=== PATIENT | female | born 1970 | race Caucasian/White ===

== ENCOUNTER 2017-12-12 16:45 | Observation (INO) | payer BC ==
[2017-12-12 19:52] LABS: BASOPHILS # (AUTO) 0.1 X10^3/uL (0.0-0.1); BASOPHILS % (AUTO) 0.5 % (0.2-1.0); EOSINOPHILS # (AUTO) 0.2 x10^3/uL (0.0-0.2); EOSINOPHILS % (AUTO) 1.7 % (0.9-2.9); HEMOGLOBIN 13.4 g/dL (12.0-16.0); LYMPHOCYTES # (AUTO) 3.8 X10^3/uL (1.3-2.9); LYMPHOCYTES % (AUTO) 37.8 % (21.0-51.0); MEAN CORPUSCULAR HEMOGLOBIN 31.1 pg (27.0-34.0); MEAN CORPUSCULAR HGB CONC 35.2 g/dL (33.0-35.0); MEAN CORPUSCULAR VOLUME 88.4 fL (80.0-100.0); MEAN PLATELET VOLUME 9.3 fL (7.4-11.0); MONOCYTES # (AUTO) 0.5 x10^3/uL (0.3-0.8); MONOCYTES % (AUTO) 5.4 % (0.0-13.0); NEUTROPHILS # (AUTO) 5.5 x10^3/uL (2.2-4.8); NEUTROPHILS % (AUTO) 54.6 % (42.0-75.0); PLATELET COUNT 214 X10^3/uL (150.0-450.0); RED CELL DISTRIBUTION WIDTH 13.9 % (11.6-16.5)
[2017-12-12 20:01] LABS: ALANINE AMINOTRANSFERASE 63 Units/L (12-78); ALKALINE PHOSPHATASE 115 Units/L (46-116); BLOOD UREA NITROGEN 14 mg/dL (7-18); CALCIUM 8.5 mg/dL (8.5-10.1); CARBON DIOXIDE 24.5 mmol/L (21-32); CHLORIDE 106 mmol/L (98-107); COR CA(FOR HYPOALB) 9.3 mg/dL (8.5-10.1); COR NA(FOR HYPERGLY) 142 mmol/L (136-145); CREATININE 0.98 mg/dL (0.55-1.02); SODIUM 140 mmol/L (136-145); TOTAL PROTEIN 6.6 g/dL (6.4-8.2); eGFR BLACK RACES > 60 (>60); eGFR NON BLACK RACES > 60 (>60)
[2017-12-12 20:09] LABS: CKMB % 1.9 % (<4); CREATINE KINASE 93 Units/L (26-192); CREATINE KINASE MB 1.8 ng/mL (0-4.0); MAGNESIUM 1.6 mg/dL (1.7-2.9); TROPONIN I < 0.02 ng/mL (0-1.5)
[2017-12-12 20:58] LABS: ASPARTATE AMINO TRANSFERASE 46 Units/L (15-37)
[2017-12-12] MEDS ORDERED: LOVENOX INJ 40 MG SYR SC SCH (21:00)
[2017-12-12 22:30] LABS: BILIRUBIN,URINE NEGATIVE (NEGATIVE); BLOOD/HEMOGLOBIN,URINE 3+ (NEGATIVE); GLUCOSE, URINE NEGATIVE (NEGATIVE); KETONES,URINE NEGATIVE (NEGATIVE); LEUKOCYTE ESTERASE ,URINE NEGATIVE (NEGATIVE); NITRITES,URINE NEGATIVE (NEGATIVE); PROTEIN,URINE NEGATIVE (NEGATIVE); UROBILINOGEN,URINE NORMAL (NORMAL)
[2017-12-12 22:36] LABS: APPEARANCE,URINE CLEAR (CLEAR); BACTERIA,URINE NEGATIVE /HPF (NEGATIVE); COLOR,URINE YELLOW (YELLOW); SQUAMOUS EPITHELIAL CELL,UR RARE /HPF (NEGATIVE)
[2017-12-13 00:28] VITALS: BMI 39.1
[2017-12-13 02:41] LABS: CREATINE KINASE 75 Units/L (26-192); CREATINE KINASE MB 1.5 ng/mL (0-4.0); TROPONIN I < 0.02 ng/mL (0-1.5)
[2017-12-13] MEDS ORDERED: POTASSIUM CHLORIDE LIQ 20 MEQ UDC PO PRN (06:23)
[2017-12-13] MEDS ORDERED: MAGNESIUM SULFATE 1 GM/100 mL PREMIX 1 GM/100 ML BAG IV PRN (06:23)
[2017-12-13] MEDS ORDERED: MAG-OX TAB PO PRN (06:23)
[2017-12-13] MEDS ORDERED: K-RIDER 10 MEQ/NS 100 ML 10 MEQ/100 ML BAG IV PRN (06:23)
[2017-12-13] MEDS ORDERED: POTASSIUM CHL 60 MEQ/NS 0.45% 500 ML IV PRN (06:23)
[2017-12-13] MEDS ORDERED: POTASSIUM CHL 40 MEQ/NS 0.45% 500 ML IV PRN (06:23)
[2017-12-13] MEDS ORDERED: K-LYTE EFFERVESCENT PO PRN (06:23)
[2017-12-13 07:52] LABS: CHOL/HDL RATIO 8.8 (0.0-5.0); CREATINE KINASE 68 Units/L (26-192)
--- NOTE | 2017-12-13 08:11 | DR.H&P ---
H&P - History & Physical for Day of: H&P Date: 12/12/17 - Chief Complaint Chief Complaint: Chest pressure and palpitations - Allergies Allergies/Adverse Reactions: Allergies Allergy/AdvReac Type Severity Reaction Status Date / Time azithromycin [From Zithromax] AdvReac Verified 12/12/17 18:48 - History of Present Illness History of Present Illness: The patient is a 47-year-old white female who presents to the clinic with complaints of chest pressure with palpitations. States it started 4 days ago. States it is occurring numerous times throughout the day. States that she will develop palpitations the and half pressure which results in coughing. Patient does have recent hospitalization secondary to acute bronchitis and right lower lobe infiltrates. Patient does state that she finally is improve her respiratory chung. In office EKG does reveal trigeminy. Patient did have 3 episodes of chest tightness with irregular rhythm and coughing which lasted approximately 10 seconds each time. Patient does give a history of cardiac catheterization 5-10 years ago with a 30% blockage. Patient is unsure off vessel. Patient is agreeable for admission with possible transfer for cardiac catheterization. 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, Ortho Surgery - Family History Family Medical History: Diabetes Mellitus, Cancer, NC, Hypertension - Social History Does patient currently use any type of tobacco product: Yes Have you used tobacco products in the last 12 months: Yes Type of Tobacco Use: Cigarettes Does any household member use tobacco: No Alcohol Use: None Drug Use: None - Medications Home Medications: Levothyroxine Sodium 1 tab PO DAILY 12/13/17 [History Confirmed 12/13/17] - Review of Systems Constitutional: No Symptoms Reported Eyes: No Symptoms Reported ENT: No Symptoms Reported Respiratory: Cough Cardiovascular: Chest Pain, Palpitations Gastrointestinal: No Symptoms Reported Genitourinary: No Symptoms Reported Musculoskeletal: No Symptoms Reported Skin: No Symptoms Reported Neurological: No Symptoms Reported - Physical Exam Vital Signs: Temperature 97.7 F Pulse Rate [Left Brachial] 64 Pulse Rate [Right Brachial] 72 Respiratory Rate 16 Blood Pressure [Left Arm] 105/58 Blood Pressure [Right Arm] 95/54 O2 Sat by Pulse Oximetry 98 Oriented: Normal Eyes: Normal Ear: Normal Nose: Normal Throat: Normal Respiratory: Clear Throughout Cardiovascular: Irregular (trigeminal rhythm comverts to sinus) : Normal Auscultation: Bowel Sounds: Normal Palpation: Normal Tenderness: Normal Skin: Normal Musculoskeletal: Normal Psychiatric: Normal Mood Description: Calm Affect: Normal Speech Pattern: Clear - Assessment/Plan (1) Chest tightness or pressure Status: Acute Plan: serial cardiac enzymes and EKGs, CBC, CMP, MAG (2) Palpitations Status: Acute Plan: serial cardiac enzymes and EKGs, CBC, CMP, MAG
[2017-12-13 08:13] LABS: CKMB % 1.8 % (<4); CREATINE KINASE MB 1.2 ng/mL (0-4.0); TROPONIN I < 0.02 ng/mL (0-1.5)
[2017-12-13 08:35] VITALS: BP 131/54
[2017-12-13] MEDS ORDERED: ASPIRIN PO SCH (09:00)
[2017-12-13 09:51] LABS: FREE T4 (FREE THYROXINE) 0.95 ng/dL (0.76-1.46); TSH (3RD GENERATION) 2.36 uIU/mL (0.358-3.74)
== END 2017-12-13 12:14 | disposition short-term general hospital (02) ==
LOC: OBS 16:45 → MERGE 16:45
PROVIDERS: ADMIT Internal Medicine; ATTEND Internal Medicine
DX: R07.89 Other chest pain (principal); R00.2 Palpitations; E11.65 Type 2 diabetes mellitus with hyperglycemia; B96.81 Helicobacter pylori [H. pylori] as the cause of diseases classified elsewhere
CPT/HCPCS: 36415; 80053; 80061; 81001; 82550; 82553; 83735; 84439; 84443; 84484; 85025; 85610; 85730; 86677; 93005; 93010; 94760; A4216; A4222; G0378; J1650